=== PATIENT | male | born 1995 | race Caucasian/White ===

== ENCOUNTER 2022-07-04 09:57 | Emergency (ER) | payer MEDICAID ==
[~2022-07-04] VITALS: Ht 170.2 cm; Wt 82.0 kg
[2022-07-04 09:59] VITALS: BP 107/90
== END 2022-07-04 11:49 | disposition home or self-care (01) ==
LOC: ER 09:57
DX: T65.891A Toxic effect of other specified substances, accidental (unintentional), initial encounter (principal); F18.10 Inhalant abuse, uncomplicated; R45.1 Restlessness and agitation; Y92.89 Other specified places as the place of occurrence of the external cause
CPT/HCPCS: 99283